=== PATIENT | female | born 1970 | race Hispanic/Latino ===

== ENCOUNTER 2021-07-28 15:05 | Emergency (ER) | payer OTHER ==
[~2021-07-28] VITALS: Ht 157.5 cm; Wt 86.6 kg
[~2021-07-28 15:05] MED LIST: CHANTIX1 MG PO; LEVOTHYROXINE100 MCG PO; MOTRIN PO; VENLAFAXINE H37.5 MG PO
[2021-07-28] MEDS ORDERED: KETOROLAC TROMETHAMINE 30 MG/ML VIAL IV STA (15:22)
[2021-07-28] MEDS ORDERED: METOCLOPRAMIDE HCL 10 MG/2ML VIAL IV ONE (15:30)
[2021-07-28] MEDS ORDERED: DIPHENHYDRAMINE HCL 25 MG CAP PO ONE (15:30)
[2021-07-28] MEDS ORDERED: SODIUM CHLORIDE 0.9% 1000ML 1,000 ML IV SCH (15:30)
== END 2021-07-28 16:41 | disposition home or self-care (01) ==
LOC: MERGE 15:23 → ER 15:23
DX: U07.1 COVID-19 (principal); R51.9 Headache, unspecified; E03.9 Hypothyroidism, unspecified; Z86.718 Personal history of other venous thrombosis and embolism
CPT/HCPCS: 99284; J1885; J2765; J7030

== ENCOUNTER 2022-04-15 22:44 | Emergency (ER) | payer OTHER ==
[~2022-04-15] VITALS: Ht 157.5 cm; Wt 86.6 kg
[2022-04-15] MEDS ORDERED: METHOCARBAMOL 500 MG TAB PO ONE (23:45)
[2022-04-15] MEDS ORDERED: DEXAMETHASONE SOD PHOS 10 MG/1 ML VIAL IM ONE (23:45)
[2022-04-15] MEDS ORDERED: KETOROLAC TROMETHAMINE 60 MG/2 ML VIAL IM ONE (23:45)
[2022-04-16] MEDS ORDERED: NAPROSYN500 MG PO (02:25)
[2022-04-16] MEDS ORDERED: METHOCARBAMOL500 MG PO (02:25)
[2022-04-16 02:50] VITALS: BP 114/81
== END 2022-04-16 02:53 | disposition home or self-care (01) ==
LOC: ER 22:52
DX: M25.551 Pain in right hip (principal); M54.31 Sciatica, right side; E03.9 Hypothyroidism, unspecified; F41.9 Anxiety disorder, unspecified; G47.00 Insomnia, unspecified; Z86.718 Personal history of other venous thrombosis and embolism
CPT/HCPCS: 72110; 73502; 99283; J1100; J1885

== ENCOUNTER 2024-09-25 13:47 | Emergency (ER) | payer BC, OTHER ==
[~2024-09-25] VITALS: Ht 160 cm; Wt 89.4 kg
[~2024-09-25 13:47] MED LIST changes: +METHOCARBAMOL500 MG PO; +NAPROSYN500 MG PO
[2024-09-25 14:10] VITALS: TEMP 98.1
[2024-09-25] MEDS: DEXAMETHASONE SOD PHOS 10 MG/1 ML VIAL IM STA (14:43)
[2024-09-25] MEDS: KETOROLAC TROMETHAMINE 60 MG/2 ML VIAL IM STA (14:43)
[2024-09-25] MEDS: Morphine 4mg INJECTION 4 MG/ML INJ IM STA (16:02)
[2024-09-25 17:00] VITALS: PULSE 89; RESP 18; O2SAT 97
[2024-09-25] MEDS ORDERED: KETOROLAC TROME10 MG PO (17:02)
[2024-09-25] MEDS ORDERED: ONDANSETRON ODT4 MG PO (17:02)
[2024-09-25] MEDS ORDERED: PREDNISONE20 MG PO (17:02)
[2024-09-25] MEDS ORDERED: HYDROCODON-ACE1 EAC9 PO (17:04)
== END 2024-09-25 17:30 | disposition home or self-care (01) ==
LOC: ER 13:56
DX: M54.50 Low back pain, unspecified (principal); E03.9 Hypothyroidism, unspecified; F41.9 Anxiety disorder, unspecified; G47.00 Insomnia, unspecified; Z86.718 Personal history of other venous thrombosis and embolism
CPT/HCPCS: 99283; J1100; J1885; J2270